=== PATIENT | male | born 1985 | race Hispanic/Latino ===

== ENCOUNTER 2020-12-12 14:08 | Emergency (ER) | payer OTHER ==
[~2020-12-12] VITALS: Ht 167.6 cm; Wt 90.9 kg
[2020-12-12] MEDS ORDERED: IBUPROFEN600 MG PO (17:48)
[2020-12-12] MEDS ORDERED: ORPHENADRINE100 MG PO (17:48)
[2020-12-12 18:04] VITALS: BP 133/79
== END 2020-12-12 18:04 | disposition home or self-care (01) | DRG 563 ==
LOC: ED 14:08
DX: S39.012A Strain of muscle, fascia and tendon of lower back, initial encounter (principal); V43.52XA Car driver injured in collision with other type car in traffic accident, initial encounter